=== PATIENT | female | born 1970 | race Caucasian/White ===

== ENCOUNTER → 2017-02-16 | Outpatient (CLI) | payer OTHER ==
[2017-02-16 15:20] LABS: ALB/GLOB RATIO 1.1 (0.9-2); ALKALINE PHOSPHATASE 71 U/L (45-117); ALT/SGPT 25 U/L (12-78); AST/SGOT 14 U/L (15-37); BLOOD UREA NITROGEN 19 mg/dl (7-18); BUN/CREATININE RATIO 17.1 (10-20); CALCIUM 8.6 mg/dl (8.5-10.1); CARBON DIOXIDE 22 mmol/L (21-32); CHLORIDE 111 mmol/L (98-107); GLUCOSE 88 mg/dl (70-99); HDL CHOLESTEROL 40 mg/dl; POTASSIUM 4.1 mmol/L (3.5-5.1); SODIUM 142 mmol/L (136-145)
[2017-02-16 15:30] LABS: CHOLESTEROL 159 mg/dl (0-200); LDL CHOLESTEROL CALCULATED 87 mg/dl; TRIGLYCERIDES 161 mg/dl (0-150); VERY LOW DENSITY LIPOPROT CALC 32 mg/dl
== END | disposition home or self-care (01) ==
LOC: C.LABSPEC 11:50
PROVIDERS: ATTEND Family Medicine
DX: R53.83 Other fatigue (principal)

== ENCOUNTER → 2017-06-22 | Outpatient (CLI) | payer OTHER | END | disposition home or self-care (01) | LOC: C.PAPS 14:32 | PROVIDERS: ATTEND Obstetrics & Gynecology | DX: Z12.4 Encounter for screening for malignant neoplasm of cervix (principal) ==

== ENCOUNTER → 2018-05-04 | Day surgery (SDC) | payer OTHER ==
[2018-04-29 11:54] VITALS: Ht 182.9 cm; Wt 68.2 kg
[~2018-05-04] VITALS: Ht 182.9 cm; Wt 68.2 kg
[~2018-05-04] MED LIST: CYAN100020 PO; FLUT1INH INH; LIDOCAINE HCL 2% 2 ML VIAL (20MG/ML) ONE; MIDAZOLAM HCL 1 MG/ML 2ML VIAL ONE; MONT1TAB3 PO; MULT-506 PO; PHYT100T PO; PROPOFOL IV EMULSION 10 MG/ML 20 ML VIAL ONE; SODIUM CHLORIDE 0.9% 500ML 500 ML IV ONE; VITACAP26 PO
--- NOTE | 2018-05-04 13:59 | Endo History and Physical ---
History & Physical Date of Service: May 04, 2018. Chief Complaint: Reflux, Hx of gastric ulcers Referring Physician: Dr Zamarripa History of Present Illness 48 yo CF who presents for EGD secondary to GERD and history of gastric ulcers. Past Surgical History Hx Cardiac Surgery: No Hx Internal Defibrillator: No Hx Pacemaker: No Hx Abdominal Surgery: No Hx of Implantable Prosthesis: No Hx Post-Op Nausea and Vomiting: No Hx Cancer Surgery: No Hx Thoracic Surgery: No Hx Orthopedic: Yes (LUMBAR SX) Hx Urinary Tract Surgery: No Family History None Social History Smoking Status: Current Every Day Smoker Hx Substance Use: No Hx Alcohol Use: Yes (RARELY) Allergies Coded Allergies: Sulfa Antibiotics (Verified Allergy, Intermediate, HIVES, 05/04/18) Current Medications Reported Home Medications Medications Dose Route/Sig Max Daily Dose Days Date Category Vitamin C (Vitamins C & E) 1 Cap Cap 1 Cap PO DAILY 04/29/18 Reported Vitamin B12 (Cyanocobalamin) 1,000 Mcg Tab 1 Tab PO DAILY 04/29/18 Reported Vitamin K (Phytonadione) 100 Mcg Tab 1 Tab PO DAILY 04/29/18 Reported Multivitamin (Multivitamins) Tab 1 Tab PO DAILY 04/29/18 Reported Singulair (Montelukast Sodium) 10 Mg Tab 10 Mg PO QDL 04/29/18 Reported Breo Ellipta (Fluticasone Furoate-Vilanterol) 1 Inh Inh 1 Puff INH BID 04/29/18 Reported Vital Signs Weight (Kilograms): 68.18 Height (Feet): 6 Height (Inches): 0 Date Time Temp Pulse Resp B/P (MAP) Pulse Ox O2 Delivery O2 Flow Rate FiO2 05/04/18 13:53 36.5 65 20 113/73 (86) 97 Room Air Physical Exam General Appearance: WD/WN, no apparent distress Respiratory/Chest: Auscultation: breath sounds normal Cardiovascular: Heart Auscultation: RRR Abdomen: Bowel Sounds: normal Inspection & Palpation: soft, non-distended, no tenderness, guarding & rebound Assessment and Plan Assessment: 48 yo CF who presents for EGD secondary to GERD and history of gastric ulcers. Plan: Proceed with EGD.
--- NOTE | 2018-05-04 14:43 | Discharge Instructions ---
Endoscopy Patient Instructions Date / Procedure(s) Performed May 04, 2018. EGD Allergy Information Coded Allergies: Sulfa Antibiotics (Verified Allergy, Intermediate, HIVES, 05/04/18) Discharge Date / Findings May 04, 2018. Gastritis s/p biopsies Medication Instructions OK to resume all medications today as prescribed Reported Home Medications Medications Dose Route/Sig Max Daily Dose Days Date Category Vitamin C (Vitamins C & E) 1 Cap Cap 1 Cap PO DAILY 04/29/18 Reported Vitamin B12 (Cyanocobalamin) 1,000 Mcg Tab 1 Tab PO DAILY 04/29/18 Reported Vitamin K (Phytonadione) 100 Mcg Tab 1 Tab PO DAILY 04/29/18 Reported Multivitamin (Multivitamins) Tab 1 Tab PO DAILY 04/29/18 Reported Singulair (Montelukast Sodium) 10 Mg Tab 10 Mg PO QDL 04/29/18 Reported Breo Ellipta (Fluticasone Furoate-Vilanterol) 1 Inh Inh 1 Puff INH BID 04/29/18 Reported Provider Instructions Activity Restrictions - No exercising or heavy lifting for 24 hours. - Do not drink alcohol the day of the procedure. - Do not drive a car or operate machinery until the day after the procedure. - Do not make any important decisions or sign important papers in 24 hours after the procedure. Following Day: - Return to full activity which may include returning to work/school. Diet Start your diet with liquids and light foods (jello, soup, juice, toast). Then eat your usual diet if not nauseated. Treatment For Common After Affects For mild abdominal pain, bloating, or excessive gas: - Rest - Eat lightly - Lie on right side Follow-Up Information Follow-up with Dr Zamarripa as scheduled Anesthesia Information What You Should Know You have had a procedure that required some medicine to reduce anxiety and discomfort. This treatment is called moderate sedation. After receiving the treatment, you may be sleepy, but you will be able to breathe on your own. The effects of the treatment may last for several hours. Follow these instructions along with Activity/Diet recommendations noted above: * Do NOT do anything where dizziness or clumsiness would be dangerous. * Rest quietly at home today, then you can be up and about tomorrow. * Have a responsible person stay with you the rest of today. * You may have had an I.V. today. If so, you may take the dressing off later today. Recommendations Call your doctor if: * Trouble breathing * Continuous vomiting for more than 24 hours * Temperature above 101 degrees * Severe abdominal pain or bloating * Pain not relieved by pain medicine ordered * There is increased drainage or redness from any incision * A large amount of rectal bleeding greater than 2-3 tablespoons. (If you had a polyp/s removed or have hemorrhoids, a small amount of blood - from the rectum is to be expected.) * You have any unanswered questions or concerns. IN THE EVENT OF A SERIOUS EMERGENCY, GO TO THE NEAREST EMERGENCY ROOM Your discharge instructions were prepared by provider Ernie Summers. Patient Instructions Signature Page Gillian Rowell Patient (or Guardian) Signature/Date: I have read and understand the instructions given to me by my caregivers. Caregiver/RN/Doctor Signature/Date: The above-named patient and/or guardian has received patient instructions on this date. + Original Patient Signature Page (only) stays with chart. Please make copy for patient.
--- NOTE | 2018-05-04 14:49 | GI REPORT ---
Patient Name: Gillian Rowell Procedure Date: 05/04/2018 2:02 PM Date of : 1970 Admit Type: Outpatient Age: 48 Gender: Female Attending MD: Ernie Summers DO Procedure: Upper GI endoscopy Providers: Ernie Summers DO Referring MD: Polo Zamarripa Indications: Follow-up of acute gastric ulcer Medicines: Monitored Anesthesia Care Complications: No immediate complications. Estimated Blood Loss: Estimated blood loss: none. Procedure: Pre-Anesthesia Assessment: - Prior to the procedure, a History and Physical was performed, and patient medications and allergies were reviewed. The patient's tolerance of previous anesthesia was also reviewed. The risks and benefits of the procedure and the sedation options and risks were discussed with the patient. All questions were answered, and informed consent was obtained. Prior Anticoagulants: The patient has taken no previous anticoagulant or antiplatelet agents. ASA Grade Assessment: II - A patient with mild systemic disease. After reviewing the risks and benefits, the patient was deemed in satisfactory condition to undergo the procedure. After obtaining informed consent, the endoscope was passed under direct vision. Throughout the procedure, the patient's blood pressure, pulse, and oxygen saturations were monitored continuously. The On-site loaner was introduced through the mouth, and advanced to the second part of duodenum. The patient tolerated the procedure well. The upper GI endoscopy was accomplished without difficulty. Findings: Localized mild inflammation characterized by erythema was found in the gastric antrum. Biopsies were taken with a cold forceps for histology. The examined duodenum was normal. Impression: - Gastritis. Biopsied. - Normal examined duodenum. Recommendation: - Resume previous diet. - Continue present medications. - Await pathology results. - Return to primary care physician as previously scheduled. Ernie Summers DO 05/04/2018 2:49:07 PM This report has been signed electronically. Note Initiated On: 05/04/2018 2:02 PM Number of Addenda: 0 I attest to the content of the Intraoperative Record and orders documented therein, exceptions below {[id number]}
--- NOTE | 2018-05-04 14:59 | Anesthesiology Progress Note ---
Anesthesia Post Op Note Date & Time May 04, 2018 at 14:59 Vital Signs Vital Signs Past 12 Hours Date Time Temp Pulse Resp B/P (MAP) Pulse Ox O2 Delivery O2 Flow Rate FiO2 05/04/18 14:50 57 20 127/73 (91) 97 Room Air 05/04/18 14:34 36.2 66 20 110/76 (87) 97 Room Air 05/04/18 13:53 36.5 65 20 113/73 (86) 97 Room Air Notes Mental Status: alert / awake / arousable, participated in evaluation Pt Amnestic to Procedure: Yes Nausea / Vomiting: adequately controlled Pain: adequately controlled Airway Patency, RR, SpO2: stable & adequate BP & HR: stable & adequate Hydration State: stable & adequate Anesthetic Complications: no major complications apparent
[2018-05-04 15:06] VITALS: BP 106/66; PULSE 65; O2SAT 99
== END | disposition home or self-care (01) ==
LOC: C.GI 13:15
PROVIDERS: ATTEND Internal Medicine
DX: Z09 Encounter for follow-up examination after completed treatment for conditions other than malignant neoplasm (principal); K21.9 Gastro-esophageal reflux disease without esophagitis; K29.50 Unspecified chronic gastritis without bleeding; J45.909 Unspecified asthma, uncomplicated; Z88.2 Allergy status to sulfonamides; F17.200 Nicotine dependence, unspecified, uncomplicated